=== PATIENT | female | born 1955 | race Caucasian/White ===

== ENCOUNTER 2017-09-06 13:47 | Outpatient (CLI) | payer MEDICARE | END 2017-09-06 13:48 | disposition home or self-care (01) | LOC: BICMAMMO 13:47 | PROVIDERS: ATTEND Family Medicine | DX: Z12.31 Encounter for screening mammogram for malignant neoplasm of breast (principal); Z85.41 Personal history of malignant neoplasm of cervix uteri | CPT/HCPCS: 77063; 77067 ==

== ENCOUNTER 2018-09-07 07:46 | Outpatient (CLI) | payer MEDICARE | END 2018-09-07 07:47 | disposition home or self-care (01) | LOC: BICMAMMO 07:46 | PROVIDERS: ATTEND Family Medicine | DX: Z12.31 Encounter for screening mammogram for malignant neoplasm of breast (principal); C53.9 Malignant neoplasm of cervix uteri, unspecified | CPT/HCPCS: 77063; 77067 ==

== ENCOUNTER 2019-09-08 09:57 | Outpatient (CLI) | payer MEDICARE ==
--- NOTE | 2019-09-08 11:20 | MMO ---
Bilateral MAMMO Bilat Screen [facility]. CLINICAL HISTORY: Patient is 63 years old and is seen for screening. The patient has the following family history of breast cancer: sister, at age 59. The patient has a history of right Ultrasound Guided Core Biopsy in ? - benign. VIEWS: The views performed were: bilateral craniocaudal with tomosynthesis; bilateral mediolateral oblique with tomosynthesis; and left craniocaudal. FILMS COMPARED: The present examination has been compared to prior imaging studies performed at [facility] on 09/02/2015, 09/04/2016, 09/06/2017 and 09/07/2018. This study has been interpreted with the assistance of computer-aided detection. MAMMOGRAM FINDINGS: There are scattered fibroglandular densities. Benign calcifications are noted bilaterally. Nodularity is stable. Right biopsy clip. There are no suspicious masses, suspicious calcifications, or new areas of architectural distortion. IMPRESSION: THERE IS NO MAMMOGRAPHIC EVIDENCE OF MALIGNANCY. A ROUTINE FOLLOW-UP MAMMOGRAM IN 1 YEAR IS RECOMMENDED. THE RESULTS OF THIS EXAM WERE SENT TO THE PATIENT. ACR BI-RADS Category 2 - Benign finding MAMMOGRAPHY NOTE: 1. A negative mammogram report should not delay a biopsy if a dominant of clinically suspicious mass is present. 2. Approximately 10% to 15% of breast cancers are not detected by mammography. 3. Adenosis and dense breasts may obscure an underlying neoplasm. Reported by: BECKY HERNANDEZ MD Electonically Signed: [id number]
== END 2019-09-08 09:58 | disposition home or self-care (01) ==
LOC: BICMAMMO 09:57
PROVIDERS: ATTEND Family Medicine
DX: Z12.31 Encounter for screening mammogram for malignant neoplasm of breast (principal); Z80.3 Family history of malignant neoplasm of breast; Z91.89 Other specified personal risk factors, not elsewhere classified
CPT/HCPCS: 77063; 77067

== ENCOUNTER 2020-06-27 07:28 | Outpatient (CLI) | payer MEDICARE ==
--- NOTE | 2020-06-27 08:28 | ULT ---
EXAM: US Abdominal PROVIDED CLINICAL HISTORY: Chronic renal failure COMPARISON: No recent comparison examinations FINDINGS: The visualized abdominal aorta, IVC and pancreas appear normal. The gallbladder is not visualized, compatible with the provided clinical history of cholecystectomy. The common duct measures 8 mm. The liver demonstrates no evidence for mass or intrahepatic biliary ductal dilatation. Normal-appearing right kidney is not seen. There are multiple cystic structures in the right renal fo ssa that may reflect long-standing severe right hydronephrosis with thinning of the renal parenchyma versus a complex cystic mass. There is severe left hydronephrosis without evidence for lef t renal mass. The spleen is not enlarged and demonstrates no focal abnormality. Free pelvic fluid is seen. IMPRESSION: 1. Probable chronic severe right hydronephrosis versus less likely right renal cystic mass. Compare w ith prior imaging if available. 2. Severe left hydronephrosis. 3. Prominence of the common duct, presumably on the basis of postcholecystectomy status. Correlate wi th laboratory values. 4. Free pelvic fluid, etiology and significance uncertain.
== END 2020-06-27 07:29 | disposition home or self-care (01) ==
LOC: BICULT 07:28
PROVIDERS: ATTEND Internal Medicine Nephrology
DX: N17.9 Acute kidney failure, unspecified (principal); E11.22 Type 2 diabetes mellitus with diabetic chronic kidney disease; N39.0 Urinary tract infection, site not specified; E78.5 Hyperlipidemia, unspecified; M19.90 Unspecified osteoarthritis, unspecified site; I13.10 Hypertensive heart and chronic kidney disease without heart failure, with stage 1 through stage 4 chronic kidney disease, or unspecified chronic kidney disease; N18.30 Chronic kidney disease, stage 3 unspecified; K21.9 Gastro-esophageal reflux disease without esophagitis; C53.9 Malignant neoplasm of cervix uteri, unspecified
CPT/HCPCS: 93975

== ENCOUNTER 2020-09-09 07:58 | Outpatient (CLI) | payer MEDICARE ==
--- NOTE | 2020-09-09 08:27 | MMO ---
Bilateral MAMMO Bilat Screen [facility]. CLINICAL HISTORY: Patient is 64 years old and is seen for screening. The patient has the following family history of breast cancer: sister, at age 59. The patient has no personal history of cancer. The patient has a history of right Ultrasound Guided Core Biopsy in ? - benign. VIEWS: The views performed were: bilateral craniocaudal with tomosynthesis and bilateral mediolateral oblique with tomosynthesis. FILMS COMPARED: The present examination has been compared to prior imaging studies performed at [facility] on 09/04/2016, 09/06/2017, 09/07/2018 and 09/08/2019. This study has been interpreted with the assistance of computer-aided detection. MAMMOGRAM FINDINGS: There are scattered fibroglandular densities. Finding 1: There are several stable nodules seen in the right breast. Finding 2: There are stable benign appearing calcifications seen in both breasts. There are no suspicious masses, suspicious calcifications, or new areas of architectural distortion. IMPRESSION: THERE IS NO MAMMOGRAPHIC EVIDENCE OF MALIGNANCY. A ROUTINE FOLLOW-UP MAMMOGRAM IN 1 YEAR IS RECOMMENDED. THE RESULTS OF THIS EXAM WERE SENT TO THE PATIENT. ACR BI-RADS Category 2 - Benign finding MAMMOGRAPHY NOTE: 1. A negative mammogram report should not delay a biopsy if a dominant of clinically suspicious mass is present. 2. Approximately 10% to 15% of breast cancers are not detected by mammography. 3. Adenosis and dense breasts may obscure an underlying neoplasm. Reported by: GUSTAVO ZAMORANO MD Electonically Signed: [id number]
== END 2020-09-09 07:59 | disposition home or self-care (01) ==
LOC: BICMAMMO 07:58
PROVIDERS: ATTEND Family Medicine
DX: Z12.31 Encounter for screening mammogram for malignant neoplasm of breast (principal); Z80.3 Family history of malignant neoplasm of breast; Z91.89 Other specified personal risk factors, not elsewhere classified
CPT/HCPCS: 77063; 77067

== ENCOUNTER 2021-09-12 08:44 | Outpatient (CLI) | payer MEDICARE | END 2021-09-12 08:45 | disposition home or self-care (01) | LOC: BICMAMMO 08:44 | PROVIDERS: ATTEND Family Medicine | DX: Z12.31 Encounter for screening mammogram for malignant neoplasm of breast (principal); Z91.89 Other specified personal risk factors, not elsewhere classified; Z80.3 Family history of malignant neoplasm of breast | CPT/HCPCS: 77063; 77067 ==

== ENCOUNTER 2022-10-12 08:26 | Outpatient (CLI) | payer MEDICARE | END 2022-10-12 08:27 | disposition home or self-care (01) | LOC: BICMAMMO 08:26 | PROVIDERS: ATTEND Family Medicine | DX: Z12.31 Encounter for screening mammogram for malignant neoplasm of breast (principal) | CPT/HCPCS: 77063; 77067 ==

== ENCOUNTER 2024-06-13 07:52 | Outpatient (CLI) | payer MEDICARE ==
[2024-06-13 09:03] LABS: #Basophils 0.03 10x3/uL (0.0-0.2); %Basophils 0.5 % (0.0-1.0); %Eosinophils 1.1 % (0.0-10.0); %Lymphocytes 20.5 % (21.0-51.0); %Monocytes 8.5 % (0.0-10.0); %Neutrophils 68.8 % (42.0-75.0); Hematocrit 41.5 % (36.0-47.0); Hemoglobin 13.1 g/dL (12.0-16.0); Mean Corpuscular HGB CONC 31.6 g/dL (32.0-36.0); Mean Corpuscular Volume 91.8 fL (78.0-98.0); Mean Platelet Volume 10.3 fL (7.4-10.4); Platelet Count 259 10x3/uL (130-400); RBC Distribution Width 13.6 % (11.5-14.5); Red Blood Cell (RBC) Count 4.52 mill/uL (4.20-5.40)
[2024-06-13 09:22] LABS: Anion Gap 12 mmol/L (10-20); BUN (Urea Nitrogen) 35 mg/dL (9.8-20.1); Calc. Creatinine Clearance 0 mL/min (70-130); Calcium 8.9 mg/dL (7.8-10.44); Carbon Dioxide 16 mmol/L (23-31); Chloride 113 mmol/L (98-107); Estimated GFR 46; Glucose 115 mg/dL (80-115); Potassium 3.4 mmol/L (3.5-5.1); Sodium 138 mmol/L (136-145)
== END 2024-06-13 07:53 | disposition home or self-care (01) ==
LOC: LABBT 07:52
PROVIDERS: ATTEND Internal Medicine
DX: Z01.818 Encounter for other preprocedural examination (principal); Z12.11 Encounter for screening for malignant neoplasm of colon; K94.09 Other complications of colostomy
CPT/HCPCS: 80048; 85025; 93005; 93010

== ENCOUNTER 2024-06-14 08:05 | Inpatient (IN) | payer MEDICARE ==
[2024-06-13 08:15] VITALS: BMI 32.1
[2024-06-14] MEDS ORDERED: metroNIDAZOLE 500 MG (100 mL) BAG ONE (13:37)
[2024-06-14] MEDS ORDERED: Acetaminophen 325 MG TAB ONE (13:41)
[2024-06-14] MEDS ORDERED: fentaNYL PF 100 MCG/2 ML SYRINGE ONE (14:14)
[2024-06-14] MEDS ORDERED: PROPOFOL 20 ML ONE (14:14)
[2024-06-14] MEDS ORDERED: Lidocaine 1% PF 5 ML VIAL ONE (14:14)
[2024-06-14] MEDS ORDERED: Rocuronium Bromide 10 MG/ML (10ML VIAL) ONE (14:14)
[2024-06-14] MEDS ORDERED: CEFAZOLIN 2 GM VIAL ONE (14:23)
[2024-06-14] MEDS ORDERED: EPINEPHrine 1 MG/ML VIAL ONE (14:33)
[2024-06-14] MEDS ORDERED: Bupivacaine 0.25% HCL 30 ML VIAL ONE (14:33)
[2024-06-14] MEDS ORDERED: Sterile Water 10 ML ONE (15:38)
[2024-06-14] MEDS ORDERED: Dexamethasone 20 MG/5 ML VIAL ONE (16:02)
[2024-06-14] MEDS ORDERED: Ondansetron PF 4 MG/2 ML Vial ONE ×2 (16:21→17:06)
[2024-06-14] MEDS ORDERED: SUGAMMADEX SODIUM 200 MG/2 ML VIAL ONE (16:28)
[2024-06-14] MEDS ORDERED: Ondansetron HCl/PF 4 MG/2 ML Vial IVP PRN (16:57)
[2024-06-14] MEDS ORDERED: Morphine Sulfate 2 MG/ML SYRINGE SLOW IVP PRN (16:57)
[2024-06-14] MEDS ORDERED: HYDROmorphone 2 MG/ML VIAL SLOW IVP PRN (16:57)
[2024-06-14] MEDS ORDERED: Promethazine HCl 25 MG/ML VIAL IM PRN (16:57)
[2024-06-14] MEDS ORDERED: PACU-Morphine 4MG/ML VIAL SLOW IVP PRN (16:57)
[2024-06-14] MEDS ORDERED: fentaNYL 50 mcg/mL 1 mL Vial ONE (17:31)
== END 2024-06-14 18:29 | disposition home or self-care (01) | DRG 331 ==
LOC: EDSTATUS 08:39 → SURG A 11:02
PROVIDERS: ADMIT Surgery; ATTEND Surgery
PROC: 0DBN0ZZ Excision of Sigmoid Colon, Open Approach (ICD-10-PCS; principal; 2024-06-14)
PROC: 0DBL8ZZ Excision of Transverse Colon, Via Natural or Artificial Opening Endoscopic (ICD-10-PCS; 2024-06-14)
DX: K94.03 Colostomy malfunction (principal); Z12.11 Encounter for screening for malignant neoplasm of colon; K63.5 Polyp of colon; Z79.899 Other long term (current) drug therapy; E10.22 Type 1 diabetes mellitus with diabetic chronic kidney disease; Z98.890 Other specified postprocedural states; Z91.041 Radiographic dye allergy status
CPT/HCPCS: 80048; 85025; 88304; 88305; 88342; 93005; A4314; A4649; J0171; J0665; J1100; J2405; J2704; J3010